=== PATIENT | female | born 1955 | race Caucasian/White ===

== ENCOUNTER 2018-06-19 06:48 | Emergency (ER) | payer MEDICAID ==
[2018-06-19] MEDS ORDERED: Sodium Chloride 0.9% 2.5 ML Syringe FLUSH PRN (07:08)
[2018-06-19] MEDS ORDERED: Sodium Chloride 0.9% 10 ML Syringe FLUSH PRN (07:08)
[2018-06-19] MEDS ORDERED: Sodium Chloride 0.9% 1,000 ML IV SCH (07:15)
--- NOTE | 2018-06-19 07:17 | EDM.PDOC ---
ED HPI GENERAL MEDICAL PROBLEM - General Chief Complaint: Lower Extremity Injury/Pain Stated Complaint: LEFT HIP PAIN Time Seen by Provider: 06/19/18 06:54 - History of Present Illness INITIAL COMMENTS - FREE TEXT/NARRATIVE: HISTORY AND PHYSICAL: History of present illness: Patient is 62-year-old female who presents status post fall which she fell down some stairs sustaining an abrasion to her left face a flap type laceration to her frontal scalp hip and left knee injury. She denies loss of consciousness she denies chest pain shortness breath dizziness or other concerns she states this was strictly mechanical fall she does acknowledge alcohol use. Review of systems: As per history of present illness and below otherwise all systems reviewed and negative. Past medical history: As per history of present illness and as reviewed below otherwise noncontributory. Surgical history: As per history of present illness and as reviewed below otherwise noncontributory. Social history: No reported history of drug or alcohol abuse. Family history: As per history of present illness and as reviewed below otherwise noncontributory. Physical exam: HEENT: 1 cm flap type laceration no step-off no depression good hemostasis abrasion left face with minor ecchymosis, normocephalic, pupils reactive, negative for conjunctival pallor or scleral icterus, mucous membranes moist, throat clear, neck supple, nontender, trachea midline. Lungs: Clear to auscultation, breath sounds equal bilaterally, chest nontender. Heart: S1S2, regular, negative for clicks, rubs, or JVD. Abdomen: Soft, nondistended, nontender. Negative for masses or hepatosplenomegaly. Negative for costovertebral tenderness. Pelvis: Stable nontender. Mild tenderness to the left hip no gross deformity or shortening appreciated limited range of motion secondary to pain left knee with no gross deformity no crepitation or point tenderness limited range of motion secondary to pain CMS neurovascular is unremarkable Genitourinary: Deferred. Rectal: Deferred. Extremities: Atraumatic, negative for cords or calf pain. Neurovascular unremarkable. Neuro: Awake, alert, oriented. Cranial nerves II through XII unremarkable. Cerebellum unremarkable. Motor and sensory unremarkable throughout. Exam nonfocal. Diagnostics: CBC CMP PT/INR troponin UA UDS EtOH chest x-ray EKG CT brain C-spine facial bones x-ray pelvis left hip Therapeutics: Saline at 125 hour Impression: #1 observation status post fall #2 head trauma with scalp lack 3 multiple abrasions/contusions #4 left hip injury #5 left knee injury# 6 alcohol abuse Definitive disposition and diagnosis as appropriate pending reevaluation and review of above. Left Hip Pain Score (Numeric/FACES): 6 - Related Data Allergies Allergy/AdvReac Type Severity Reaction Status Date / Time No Known Allergies Allergy Verified 06/19/18 06:59 Home Meds: Home Meds . [No Known Home Meds] 06/19/18 [History] Past Medical History - Past Health History Medical/Surgical History: Denies Medical/Surgical History Social & Family History - Tobacco Use Smoking Status *Q: Current Every Day Smoker Years of Tobacco use: 25 Packs/Tins Daily: 1.5 Review of Systems - Review of Systems Review Of Systems: ROS reveals no pertinent complaints other than HPI. ED EXAM, GENERAL - Physical Exam Exam: See Below (The dictation) Course - Vital Signs Text/Narrative:: Patient's emergency department course is been unremarkable she does have a distal femur fracture discuss case with at [facility] was kind enough to accept the patient for transfer patient agrees. Last Recorded V/S: Last Vital Signs Temp 36.4 C 06/19/18 06:55 Pulse 100 06/19/18 06:55 Resp 18 06/19/18 06:55 BP 145/69 H 06/19/18 06:55 Pulse Ox 95 06/19/18 06:55 - Orders/Labs/Meds Orders: Active Orders 24 hr Category Date Time Status EKG Documentation Completion [RC] STAT Care 06/19/18 07:06 Active Cervical Spine wo Cont [CT] Stat Exams 06/19/18 07:08 Taken Chest 1V Frontal [CR] Stat Exams 06/19/18 07:09 Taken Head wo Cont [CT] Stat Exams 06/19/18 07:07 Taken Hip Min 2V or 3V w Pelvis Lt [CR] Stat Exams 06/19/18 07:08 Taken Knee 3V Lt [CR] Stat Exams 06/19/18 07:09 Taken Max Facial Sinus wo Cont [CT] Stat Exams 06/19/18 07:08 Taken CULTURE URINE [RM] Stat Lab 06/19/18 07:07 Ordered DRUG SCREEN, URINE [URCHEM] Stat Lab 06/19/18 07:07 Ordered UA W/MICROSCOPIC [URIN] Stat Lab 06/19/18 07:07 Ordered Sodium Chloride 0.9% [Normal Saline] 1,000 ml Med 06/19/18 07:15 Active IV STAT Sodium Chloride 0.9% [Saline Flush] Med 06/19/18 07:08 Active 10 ml FLUSH ASDIRECTED PRN Sodium Chloride 0.9% [Saline Flush] Med 06/19/18 07:08 Active 2.5 ml FLUSH ASDIRECTED PRN Saline Lock Insert [OM.PC] Stat Oth 06/19/18 07:06 Ordered Medication Orders Sodium Chloride (Normal Saline) 1,000 mls @ 125 mls/hr IV STAT LESLI Last Admin: 06/19/18 07:46 Dose: 125 mls/hr Sodium Chloride (Saline Flush) 10 ml FLUSH ASDIRECTED PRN PRN Reason: Keep Vein Open Sodium Chloride (Saline Flush) 2.5 ml FLUSH ASDIRECTED PRN PRN Reason: Keep Vein Open Labs: Laboratory Tests 06/19/18 06/19/18 06/19/18 Range/Units 07:25 07:25 07:25 WBC 11.84 H (4.0-11.0) K/uL RBC 4.13 L (4.30-5.90) M/uL Hgb 13.5 (12.0-16.0) g/dL Hct 38.0 (36.0-46.0) % MCV 92.0 (80.0-98.0) fL MCH 32.7 H (27.0-32.0) pg MCHC 35.5 (31.0-37.0) g/dL RDW Std Deviation 44.7 (28.0-62.0) fl RDW Coeff of Kaylee 13 (11.0-15.0) % Plt Count 233 (150-400) K/uL MPV 8.60 (7.40-12.00) fL Neut % (Auto) 82.5 H (48.0-80.0) % Lymph % (Auto) 10.1 L (16.0-40.0) % Haakon % (Auto) 6.9 (0.0-15.0) % Eos % (Auto) 0.2 (0.0-7.0) % Baso % (Auto) 0.3 (0.0-1.5) % Neut # (Auto) 9.8 H (1.4-5.7) K/uL Lymph # (Auto) 1.2 (0.6-2.4) K/uL Haakon # (Auto) 0.8 (0.0-0.8) K/uL Eos # (Auto) 0.0 (0.0-0.7) K/uL Baso # (Auto) 0.0 (0.0-0.1) K/uL Nucleated RBC % 0.0 /100WBC Nucleated RBCs # 0 K/uL INR 0.97 Sodium 128 L (136-145) mmol/L Potassium 3.7 (3.5-5.1) mmol/L Chloride 94 L (98-107) mmol/L Carbon Dioxide 23.0 (21.0-32.0) mmol/L BUN 2 L (7.0-18.0) mg/dL Creatinine 0.5 L (0.6-1.0) mg/dL Est Cr Clr Drug Dosing 85.94 mL/min Estimated GFR (MDRD) > 60.0 ml/min Glucose 104 (74-106) mg/dL Calcium 9.3 (8.5-10.1) mg/dL Total Bilirubin 0.3 (0.2-1.0) mg/dL AST 25 (15-37) IU/L ALT 25 (14-63) IU/L Alkaline Phosphatase 95 (46-116) U/L Troponin I < 0.050 (0.000-0.056) ng/mL Total Protein 7.2 (6.4-8.2) g/dL Albumin 3.8 (3.4-5.0) g/dL Globulin 3.4 (2.0-3.5) g/dL Albumin/Globulin Ratio 1.1 L (1.3-2.8) Ethyl Alcohol 153 mg/dL Meds: Medications Generic Name Dose Route Start Last Admin Trade Name Freq PRN Reason Stop Dose Admin Sodium Chloride 1,000 mls @ 125 mls/hr 06/19/18 07:15 06/19/18 07:46 Normal Saline IV 125 mls/hr STAT LESLI Administration Sodium Chloride 10 ml 06/19/18 07:08 Saline Flush FLUSH ASDIRECTED PRN Keep Vein Open Sodium Chloride 2.5 ml 06/19/18 07:08 Saline Flush FLUSH ASDIRECTED PRN Keep Vein Open Discontinued Medications Generic Name Dose Route Start Last Admin Trade Name Freq PRN Reason Stop Dose Admin Ketorolac Tromethamine 30 mg 06/19/18 08:04 06/19/18 07:55 Toradol IVPUSH 06/19/18 08:05 30 mg ONETIME ONE Administration Departure - Departure Time of Disposition: 09:25 Disposition: DC/Tfer to Acute Hospital 02 Condition: Good Clinical Impression: Femur fracture, left - Discharge Information Referrals: PCP,None [Primary Care Provider] - Forms: ED Department Discharge - My Orders Last 24 Hours: My Active Orders 06/19/18 07:06 EKG Documentation Completion [RC] STAT Saline Lock Insert [OM.PC] Stat 06/19/18 07:07 Head wo Cont [CT] Stat CULTURE URINE [RM] Stat DRUG SCREEN, URINE [URCHEM] Stat UA W/MICROSCOPIC [URIN] Stat 06/19/18 07:08 Cervical Spine wo Cont [CT] Stat Hip Min 2V or 3V w Pelvis Lt [CR] Stat Max Facial Sinus wo Cont [CT] Stat Sodium Chloride 0.9% [Saline Flush] 10 ml FLUSH ASDIRECTED PRN Sodium Chloride 0.9% [Saline Flush] 2.5 ml FLUSH ASDIRECTED PRN 06/19/18 07:09 Chest 1V Frontal [CR] Stat Knee 3V Lt [CR] Stat 06/19/18 07:15 Sodium Chloride 0.9% [Normal Saline] 1,000 ml IV STAT - Assessment/Plan Last 24 Hours: My Active Orders 06/19/18 07:06 EKG Documentation Completion [RC] STAT Saline Lock Insert [OM.PC] Stat 06/19/18 07:07 Head wo Cont [CT] Stat CULTURE URINE [RM] Stat DRUG SCREEN, URINE [URCHEM] Stat UA W/MICROSCOPIC [URIN] Stat 06/19/18 07:08 Cervical Spine wo Cont [CT] Stat Hip Min 2V or 3V w Pelvis Lt [CR] Stat Max Facial Sinus wo Cont [CT] Stat Sodium Chloride 0.9% [Saline Flush] 10 ml FLUSH ASDIRECTED PRN Sodium Chloride 0.9% [Saline Flush] 2.5 ml FLUSH ASDIRECTED PRN 06/19/18 07:09 Chest 1V Frontal [CR] Stat Knee 3V Lt [CR] Stat 06/19/18 07:15 Sodium Chloride 0.9% [Normal Saline] 1,000 ml IV STAT
[2018-06-19 07:54] LABS: CHLORIDE,CL 94 mmol/L (98-107); SODIUM,NA 128 mmol/L (136-145)
[2018-06-19] MEDS ORDERED: Ketorolac 30 MG/ML SDV IVPUSH ONE (08:04)
--- NOTE | 2018-06-19 14:43 | CT ---
EXAM DATE: 06/19/18 PATIENT'S AGE: 62 Patient: VENKATESH GONCALVES Facility: [place], [place] Site . Site : 1955 Study: CT Facial SINUS [id number]/3/2018 8:24:43 AM Ordering Physician: Anna Thompson Final Report: INDICATION: PAIN TECHNIQUE: Noncontrast CT scan of the facial bones with re-formatted images obtained. FINDINGS: No facial bone fractures identified. Mild mucous membrane thickening in the lower portions of the bilateral maxillary sinuses. The paranasal sinuses are otherwise well pneumatized and show no air-fluid levels or other mucous membrane thickening. Degenerative changes of the bilateral temporal mandibular joints. No other bony or soft tissue abnormalities identified. IMPRESSION: 1. Mild mucous membrane thickening in the lower portions of the maxillary sinuses could be due to an age-indeterminate sinusitis. The paranasal sinuses are otherwise unremarkable. 2. No facial bone fractures identified. Dictated by Juan Carrion MD @ 06/19/2018 8:41:50 AM Dictated by: Juan Carrion MD @ 06/19/2018 08:41:59 (Electronic Signature) Report Signed by Proxy. [facility]
--- NOTE | 2018-06-19 14:44 | CT ---
EXAM DATE: 06/19/18 PATIENT'S AGE: 62 Patient: VENKATESH GONCALVES Facility: [place], [place] Site . Site : 1955 Study: CT Head [id number]/3/2018 8:29:41 AM Ordering Physician: Anna Thompson Final Report: INDICATION: PAIN Technique: Non-contrast head CT scan. Findings: Diffuse decreased attenuation of the periventricular white matter which likely represents small vessel ischemic disease. No other abnormal foci of altered attenuation in the brain parenchyma. No midline shift or mass effect. No hydrocephalus. No abnormal extra-axial fluid collections. Atrophic changes of the brain parenchyma. No abnormalities identified in the visualized portions of the paranasal sinuses , skull, and scalp. Impression: No evidence of acute intracranial abnormalities. Dictated by: Juan Carrion MD @ 06/19/2018 08:45:05 (Electronic Signature) Report Signed by Proxy. DE[facility]
--- NOTE | 2018-06-19 14:45 | CT ---
EXAM DATE: 06/19/18 PATIENT'S AGE: 62 Patient: VENKATESH GONCALVES Facility: [place], [place] Site . Site : 1955 Study: CT Spine Cervical WO CONT [id number]/3/2018 8:30:12 AM Ordering Physician: Anna Thompson Final Report: INDICATION: PAIN Technique: Non-contrast CT scan of the cervical spine with reformatted images obtained. Findings: Normal height and alignment of the cervical vertebral bodies. No evidence of acute fracture or dislocation. No other abnormalities identified. Impression: No evidence of acute fracture or dislocation of the cervical spine. Dictated by: Juan Carrion MD @ 06/19/2018 08:48:20 (Electronic Signature) Report Signed by Proxy. DEA
--- NOTE | 2018-06-19 14:46 | CR ---
EXAM DATE: 06/19/18 PATIENT'S AGE: 62 Patient: VENKATESH GONCALVES Facility: [place], [place] Site . Site : 1955 Study: XRay Chest [id number]/3/2018 8:33:36 AM Ordering Physician: Anna Thompson Final Report: INDICATION: PAIN, SOB FINDINGS: A single portable chest x-ray shows a normal cardiac silhouette. The lungs show no focal pulmonary opacities. Sharp pleural margins. No pneumothorax. IMPRESSION: No evidence of acute pulmonary abnormalities. Dictated by Juan Carrion MD @ 06/19/2018 8:52:50 AM Dictated by: Juan Carrion MD @ 06/19/2018 08:53:03 (Electronic Signature) Report Signed by Proxy. [facility]
--- NOTE | 2018-06-19 14:47 | CR ---
EXAM DATE: 06/19/18 PATIENT'S AGE: 62 Patient: VENKATESH GONCALVES Facility: [place], [place] Site . Site : 1955 Study: XRay Hip Left [id number]/3/2018 8:38:09 AM Ordering Physician: Anna Thompson Final Report: INDICATION: fall FINDINGS: A single frontal view of the pelvis along with 4 views of the left hip show no evidence of acute fracture or dislocation. The hip joints appear intact. No other bony or soft tissue abnormalities identified. Dictated by Juan Carrion MD @ 06/19/2018 8:51:50 AM Dictated by: Juan Carrion MD @ 06/19/2018 08:51:59 (Electronic Signature) Report Signed by Proxy. DEA
--- NOTE | 2018-06-19 14:49 | CR ---
EXAM DATE: 06/19/18 PATIENT'S AGE: 62 Patient: VENKATESH GONCALVES Facility: [place], [place] Site . Site : 1955 Study: XRay Knee [id number]/3/2018 8:39:07 AM Ordering Physician: Anna Thompson Final Report: INDICATION: Fall. Pain. FINDINGS: Three views of the right knee show a nondisplaced mildly angulated distal femoral fracture. No other evidence of acute fracture or dislocation. Stabilization plate and screws in the proximal tibia which appear intact. Hemarthrosis in the knee joint. No other bony or soft tissue abnormalities identified. IMPRESSION: Mildly angulated distal femoral fracture. Dictated by Juan Carrion MD @ 06/19/2018 9:08:09 AM Dictated by: Juan Carrion MD @ 06/19/2018 09:08:19 ----- ADDENDUM ----- Addendum : This study is of the LEFT knee. Dictated by Juan Carrion MD @ Jun 19 2018 9:29AM (Electronic Signature) Report Signed by Proxy. [facility]A
== END 2018-06-19 10:21 ==
LOC: MW.ED 06:48
DX: S72.402A Unspecified fracture of lower end of left femur, initial encounter for closed fracture (principal); S09.90XA Unspecified injury of head, initial encounter; S00.83XA Contusion of other part of head, initial encounter; S89.92XA Unspecified injury of left lower leg, initial encounter; F17.210 Nicotine dependence, cigarettes, uncomplicated; W10.8XXA Fall (on) (from) other stairs and steps, initial encounter
CPT/HCPCS: 36415; 70450; 70486; 71045; 72125; 73502; 73562; 80053; 80305; 81001; 84484; 85025; 85610; 87086; 93005; 96361; 96374; 99285; G0480; J1885; J7040